=== PATIENT | female | born 1980 | race Caucasian/White ===

== ENCOUNTER 2018-02-20 20:36 | Emergency (ER) | payer OTHER ==
[~2018-02-20] VITALS: Ht 149.9 cm; Wt 79.4 kg
[~2018-02-20 20:36] MED LIST: CEFTIN250 MG PO; IMITREX50 MG PO; KETO10TA2 PO; PANADOL EXTRA500 MG
[2018-02-20] MEDS ORDERED: FIORICET (21:04)
[2018-02-21] MEDS ORDERED: CYCLOBENZAPRINE10 MG PO (00:50)
[2018-02-21] MEDS ORDERED: KETO10TA2 PO (00:50)
[2018-02-21] MEDS ORDERED: ORPHENADRINE C100 MG PO (00:50)
[2018-02-25] MEDS ORDERED: KETO10TA2 PO (05:12)
== END 2018-02-21 01:31 | disposition home or self-care (01) ==
LOC: ER 20:36
DX: R42 Dizziness and giddiness (principal); M54.5 Low back pain

== ENCOUNTER 2018-02-24 23:42 | Emergency (ER) | payer OTHER ==
[~2018-02-24] VITALS: Ht 149.9 cm; Wt 56.7 kg
== END 2018-02-25 05:20 | disposition home or self-care (01) ==
LOC: ER 23:42
DX: R10.31 Right lower quadrant pain (principal)

== ENCOUNTER → 2018-06-02 | Emergency (ER) | payer OTHER ==
[~2018-06-02] VITALS: Ht 149.9 cm; Wt 56.7 kg
[~2018-06-02] MED LIST changes: +CYCLOBENZAPRINE10 MG PO; +FIORICET; +ORPHENADRINE C100 MG PO
== END | disposition left against medical advice (07) ==
LOC: ER 23:46
DX: Z53.20 Procedure and treatment not carried out because of patient's decision for unspecified reasons (principal)